=== PATIENT | male | born 1940 | race African-American/Black ===

== ENCOUNTER 2017-11-07 14:25 | Inpatient (IN) | payer OTHER, MEDICARE ==
[~2017-11-07] VITALS: Ht 182.9 cm; Wt 86.2 kg
[2017-11-07] MEDS ORDERED: SODIUM CHLORIDE 0.9% 1,000 ML IV ONE (14:41)
[2017-11-07 15:17] LABS: BASOPHILS % 0.8 % (0.0-2.0); EOSINOPHILS % 5.5 % (0.0-5.0); HEMATOCRIT. 36.4 % (42.0-52.0); HEMOGLOBIN. 11.9 g/dL (14.0-18.0); LYMPHOCYTES % 27.6 % (20.0-50.0); MEAN CORPUSCULAR HEMOGLOBIN 28.4 pg (28.0-32.0); MEAN CORPUSCULAR VOLUME 86.6 fL (80.0-94.0); MEAN PLATELET VOLUME 8.9 fl (7.4-10.4); MONOCYTES % 7.7 % (2.0-8.0); NEUTROPHILS % 58.4 % (40.0-76.0); PLATELET 177 x1000/uL (130-400); RED CELL DISTRIBUTION WIDTH 13.1 % (11.6-14.6)
[2017-11-07 15:22] LABS: INR 1.1; PROTHROMBIN TIME 11.6 sec (9.4-11.6)
[2017-11-07 15:24] LABS: CHLORIDE 103 mEq/L (98-107)
[2017-11-07 15:31] LABS: TROPONIN I < 0.02 ng/mL (0.00-0.04)
[2017-11-07 18:44] LABS: CLARITY URINE CLEAR (CLEAR); COLOR URINE YELLOW (YELLOW); KETONES URINE NEGATIVE (NEGATIVE); LEUKOCYTE ESTERASE URINE 1+ (NEGATIVE); NITRITE URINE NEGATIVE (NEGATIVE); OCCULT BLOOD URINE NEGATIVE (NEGATIVE); PROTEIN URINE NEGATIVE (NEGATIVE); SPECIFIC GRAVITY URINE 1.018 (1.005-1.030); UROBILINOGEN URINE 0.2 E.U./dL (0.2-1.0)
[2017-11-07] MEDS ORDERED: ACETAMINOPHEN 325MG TABLET PO PRN (23:45)
[2017-11-07] MEDS ORDERED: ONDANSETRON HCL 4MG/2ML VIAL IV PRN (23:45)
[2017-11-07] MEDS ORDERED: DIPHENHYDRAMINE 50MG/ML VIAL IV PRN (23:45)
[2017-11-07] MEDS ORDERED: MAGNESIUM/ALUMINUM HYDROXIDE/SIMETHICONE 30ML UDC PO PRN (23:45)
[2017-11-07] MEDS ORDERED: DOCUSATE SODIUM 100MG CAPSULE PO PRN (23:45)
[2017-11-07] MEDS ORDERED: CLONIDINE 0.1MG TABLET PO PRN (23:45)
[2017-11-07 23:53] VITALS: BP 135/73
[2017-11-08] VITALS: BP 135/73
[2017-11-08] MEDS ORDERED: DEXT 5%/0.45% NACL 1000ML 1,000 ML IV SCH (01:00)
[2017-11-08] MEDS ORDERED: METO25TA6 PO (01:06)
[2017-11-08] MEDS ORDERED: SIMV40TA2 PO (01:06)
[2017-11-08] MEDS ORDERED: ASPI-1159 PO (01:06)
[2017-11-08] MEDS ORDERED: MULT-1146 PO (01:06)
[2017-11-08] MEDS ORDERED: MEMA10TA2 PO (01:06)
[2017-11-08] MEDS ORDERED: TERA2CAP4 PO (01:06)
[2017-11-08 04:00] VITALS: BP 131/63
[2017-11-08 07:42] LABS: BASOPHILS % 0.4 % (0.0-2.0); EOSINOPHILS % 3.6 % (0.0-5.0); HEMATOCRIT. 33.1 % (42.0-52.0); HEMOGLOBIN. 11.2 g/dL (14.0-18.0); LYMPHOCYTES % 32.4 % (20.0-50.0); MEAN CORPUSCULAR HEMOGLOBIN 28.7 pg (28.0-32.0); MEAN PLATELET VOLUME 8.9 fl (7.4-10.4); MONOCYTES % 9.4 % (2.0-8.0); NEUTROPHILS % 54.2 % (40.0-76.0); PLATELET 190 x1000/uL (130-400); RED BLOOD CELL COUNT 3.89 mill/uL (4.7-6.1); RED CELL DISTRIBUTION WIDTH 13.2 % (11.6-14.6)
[2017-11-08 07:56] LABS: CHLORIDE 106 mEq/L (98-107)
[2017-11-08 08:05] VITALS: BP 110/67
[2017-11-08 08:09] LABS: TROPONIN I < 0.02 ng/mL (0.00-0.04)
[2017-11-08] MEDS ORDERED: METOPROLOL TARTRATE 25MG TABLET PO SCH (09:00)
[2017-11-08] MEDS: ASPIRIN 81MG EC TABLET PO SCH (09:30)
[2017-11-08] MEDS: MEMANTINE HCL 10MG TABLET PO SCH ×2 (09:31→18:24)
[2017-11-08 12:04] VITALS: BP 104/56
[2017-11-08 16:53] VITALS: BP 102/74
[2017-11-08 20:00] VITALS: BP_SYST 110; BP_SYST 126; BP_DIAS 65
[2017-11-09] VITALS: BP 111/67
[2017-11-09 04:00] VITALS: BP 110/78
[2017-11-09] MEDS: MEMANTINE HCL 10MG TABLET PO SCH (08:24)
[2017-11-09] MEDS: ASPIRIN 81MG EC TABLET PO SCH (08:24)
[2017-11-09 09:31] VITALS: BP 120/66
[2017-11-09 12:47] VITALS: BP 115/48
[2017-11-09 13:20] VITALS: BP 111/62
== END 2017-11-09 15:40 | disposition home or self-care (01) | DRG 73 ==
LOC: ER 14:35 → 6WST 19:32 → EDBEDREQ 19:36 → ENRESERV 23:08
PROVIDERS: ADMIT Internal Medicine; ATTEND Internal Medicine
DX: G90.8 Other disorders of autonomic nervous system (principal); G93.41 Metabolic encephalopathy; F01.51 Vascular dementia, unspecified severity, with behavioral disturbance; I48.91 Unspecified atrial fibrillation; I95.9 Hypotension, unspecified; I25.10 Atherosclerotic heart disease of native coronary artery without angina pectoris; I10 Essential (primary) hypertension; I44.0 Atrioventricular block, first degree; M19.90 Unspecified osteoarthritis, unspecified site; Z82.49 Family history of ischemic heart disease and other diseases of the circulatory system; Z95.5 Presence of coronary angioplasty implant and graft; Z79.899 Other long term (current) drug therapy; Z79.82 Long term (current) use of aspirin; Z74.01 Bed confinement status
CPT/HCPCS: 36415; 70450; 70551; 71045; 80048; 80053; 81003; 83880; 84443; 84484; 85025; 85610; 93005; 93306; 93880; 96360; 96361; 97163; 99285; J3490; J7030

== ENCOUNTER 2017-11-25 13:40 | Inpatient (IN) | payer MEDICARE, OTHER ==
[~2017-11-25] VITALS: Ht 182.9 cm; Wt 87.1 kg
[~2017-11-25 13:40] MED LIST: ASPI-1159 PO; MEMA10TA2 PO; METO25TA6 PO; MULT-1146 PO; SIMV40TA2 PO; TERA2CAP4 PO
[2017-11-25] MEDS ORDERED: SODIUM CHLORIDE 0.9% 1,000 ML IV ONE (15:20)
[2017-11-25 15:49] LABS: CHLORIDE 104 mEq/L (98-107)
[2017-11-25 15:54] LABS: BASOPHILS % 0.6 % (0.0-2.0); EOSINOPHILS % 1.9 % (0.0-5.0); LYMPHOCYTES % 13.4 % (20.0-50.0); MEAN CORPUSCULAR HEMOGLOBIN 28.6 pg (28.0-32.0); MEAN CORPUSCULAR VOLUME 85.8 fL (80.0-94.0); MEAN PLATELET VOLUME 8.9 fl (7.4-10.4); MONOCYTES % 7.1 % (2.0-8.0); PLATELET 190 x1000/uL (130-400); RED BLOOD CELL COUNT 4.19 mill/uL (4.7-6.1); RED CELL DISTRIBUTION WIDTH 13.7 % (11.6-14.6)
[2017-11-25 15:57] LABS: INR 1.1; PROTHROMBIN TIME 11.5 sec (9.4-11.6)
[2017-11-25 16:59] LABS: CLARITY URINE CLEAR (CLEAR); COLOR URINE YELLOW (YELLOW); KETONES URINE NEGATIVE (NEGATIVE); LEUKOCYTE ESTERASE URINE NEGATIVE (NEGATIVE); NITRITE URINE NEGATIVE (NEGATIVE); OCCULT BLOOD URINE NEGATIVE (NEGATIVE); PH URINE 6.5 (4.5-8.0); PROTEIN URINE NEGATIVE (NEGATIVE); SPECIFIC GRAVITY URINE 1.016 (1.005-1.030)
[2017-11-25] MEDS ORDERED: IPRATROPIUM/ALBUTEROL 0.5-3(2.5)MG/3ML NEB INH PRN (18:15)
[2017-11-25] MEDS ORDERED: ACETAMINOPHEN 325MG TABLET PO PRN (18:15)
[2017-11-25] MEDS ORDERED: NA PHOS,M-B/NA PHOS,DI-BA ENEMA 118ML PR PRN (18:15)
[2017-11-25] MEDS ORDERED: DOCUSATE SODIUM 100MG CAPSULE PO PRN (18:15)
[2017-11-25] MEDS ORDERED: GUAIFENESIN 200MG/10ML SUGAR FREE UDC PO PRN (18:15)
[2017-11-25] MEDS ORDERED: LORAZEPAM 0.5MG TABLET PO PRN (18:15)
[2017-11-25] MEDS ORDERED: ONDANSETRON HCL 4MG/2ML VIAL IV PRN (18:15)
[2017-11-25] MEDS ORDERED: MAGNESIUM/ALUMINUM HYDROXIDE/SIMETHICONE 30ML UDC PO PRN (18:15)
[2017-11-25] MEDS ORDERED: DIPHENHYDRAMINE 50MG/ML VIAL IV PRN (18:15)
[2017-11-25] MEDS ORDERED: CLONIDINE 0.1MG TABLET PO PRN (18:15)
[2017-11-25 18:46] LABS: T4 FREE 1.01 ng/dL (0.76-1.46)
[2017-11-25] MEDS ORDERED: LEVOFLOXACIN 500MG PREMIX 100 ML IV NR (20:49)
[2017-11-25] MEDS: SODIUM CHLORIDE 0.9% 1,000 ML IV SCH (21:30)
[2017-11-25 22:20] LABS: CREATINE KINASE 103 IU/L (39-308)
[2017-11-25 22:21] LABS: CREATINE KINASE MB FRACTION 1.9 ng/mL (0.5-3.6); TROPONIN I <0.01 ng/mL ng/mL (0.00-0.04)
[2017-11-25 23:21] VITALS: BP 128/66
[2017-11-26] VITALS: BP 128/66
[2017-11-26] MEDS ORDERED: CEFTRIAXONE 1 G PREMIX 50 ML IV SCH (02:00)
[2017-11-26] MEDS ORDERED: LEVOFLOXACIN 500MG PREMIX 100 ML IV SCH ×2 (03:00→06:00)
[2017-11-26 04:00] VITALS: BP 130/68
[2017-11-26 06:37] LABS: CREATINE KINASE 95 IU/L (39-308); CREATINE KINASE MB FRACTION 1.7 ng/mL (0.5-3.6); TROPONIN I <0.01 ng/mL ng/mL (0.00-0.04)
[2017-11-26 08:00] VITALS: BP 110/60
[2017-11-26] MEDS ORDERED: ENOXAPARIN 40MG/0.4ML SYR SUBCUT SCH (09:00)
[2017-11-26 11:34] LABS: *AMPHETAMINES SCREEN URINE NEGATIVE (NEGATIVE); *BARBITURATES SCREEN URINE NEGATIVE (NEGATIVE); *BENZODIAZEPINES SCREEN URINE NEGATIVE (NEGATIVE); *COCAINE SCREEN URINE NEGATIVE (NEGATIVE); METHADONE URINE SCREEN NEGATIVE (NEGATIVE)
[2017-11-26 11:35] LABS: CANNABINOID URINE SCREEN NEGATIVE (NEGATIVE); OPIATES URINE SCREEN NEGATIVE (NEGATIVE); PHENCYCLIDINE URINE SCREEN NEGATIVE (NEGATIVE)
[2017-11-26 12:00] VITALS: BP 129/68
[2017-11-26] MEDS: SODIUM CHLORIDE 0.9% 1,000 ML IV SCH (15:00)
[2017-11-26 16:21] VITALS: BP 132/75
[2017-11-27 17:58] LABS: FOLIC ACID (FOLATE) SERUM 17.9 ng/mL (>5.38)
== END 2017-11-26 18:10 | disposition short-term general hospital (02) | DRG 871 ==
LOC: ER 14:21 → 8WST 17:37 → EDBEDREQ 17:41 → EDBEDREQSVC 17:41 → ENRESERV 21:17
PROVIDERS: ADMIT Internal Medicine; ATTEND Internal Medicine
DX: A41.9 Sepsis, unspecified organism (principal); G92 Toxic encephalopathy; F03.90 Unspecified dementia, unspecified severity, without behavioral disturbance, psychotic disturbance, mood disturbance, and anxiety; I10 Essential (primary) hypertension; Z79.899 Other long term (current) drug therapy
CPT/HCPCS: 36415; 70450; 71045; 80053; 80061; 80305; 81003; 82550; 82553; 82607; 82746; 82962; 83036; 83540; 83550; 83605; 84439; 84443; 84484; 85025; 85610; 87040; 87086; 93005; 93970; 99285; J0696; J1650; J1956; J7030; J7620

== ENCOUNTER 2018-01-11 14:45 | Emergency (ER) | payer MEDICARE, OTHER ==
[~2018-01-11] VITALS: Ht 182.9 cm; Wt 85.0 kg
[2018-01-11] MEDS ORDERED: KETOROLAC 15MG/ML VIAL IV ONE (15:15)
[2018-01-11] MEDS ORDERED: SODIUM CHLORIDE 0.9% 1000ML BAG (SEPSIS BOLUS) IV ONE (15:15)
[2018-01-11] MEDS ORDERED: LEVETIRACETAM 500MG PREMIX 100 ML IV ONE (15:15)
[2018-01-11 17:53] LABS: CHLORIDE 104 mEq/L (98-107)
[2018-01-11 17:54] LABS: BASOPHILS % 0.2 % (0.0-2.0); EOSINOPHILS % 1.4 % (0.0-5.0); HEMATOCRIT. 37.9 % (42.0-52.0); HEMOGLOBIN. 12.5 g/dL (14.0-18.0); LYMPHOCYTES % 14.1 % (20.0-50.0); MEAN CORPUSCULAR HEMOGLOBIN 29.1 pg (28.0-32.0); MEAN CORPUSCULAR VOLUME 87.9 fL (80.0-94.0); MEAN PLATELET VOLUME 8.6 fl (7.4-10.4); MONOCYTES % 4.6 % (2.0-8.0); NEUTROPHILS % 79.7 % (40.0-76.0); PLATELET 203 x1000/uL (130-400); RED BLOOD CELL COUNT 4.31 mill/uL (4.7-6.1); RED CELL DISTRIBUTION WIDTH 14.3 % (11.6-14.6)
[2018-01-11 17:59] LABS: PARTIAL THROMBOPLASTIN TIME 22.3 sec (23.4-31.0); PROTHROMBIN TIME 10.9 sec (9.4-11.6)
[2018-01-11] MEDS ORDERED: LEVOFLOXACIN 750MG PREMIX 150 ML IV ONE (18:30)
[2018-01-11] MEDS ORDERED: ASPIRIN 325MG EC TABLET PO ONE (19:00)
[2018-01-11 21:10] LABS: CLARITY URINE CLEAR (CLEAR); COLOR URINE YELLOW (YELLOW); KETONES URINE NEGATIVE (NEGATIVE); LEUKOCYTE ESTERASE URINE TRACE (NEGATIVE); NITRITE URINE NEGATIVE (NEGATIVE); OCCULT BLOOD URINE 2+ (NEGATIVE); PROTEIN URINE NEGATIVE (NEGATIVE); SPECIFIC GRAVITY URINE 1.012 (1.005-1.030); UROBILINOGEN URINE 0.2 E.U./dL (0.2-1.0)
[2018-01-12 00:48] VITALS: BP 140/80
== END 2018-01-12 00:49 | disposition short-term general hospital (02) ==
LOC: ER 15:00
DX: A41.9 Sepsis, unspecified organism (principal); R65.20 Severe sepsis without septic shock; R55 Syncope and collapse; I95.9 Hypotension, unspecified; G40.909 Epilepsy, unspecified, not intractable, without status epilepticus; I25.10 Atherosclerotic heart disease of native coronary artery without angina pectoris; D64.9 Anemia, unspecified; F03.90 Unspecified dementia, unspecified severity, without behavioral disturbance, psychotic disturbance, mood disturbance, and anxiety; I11.9 Hypertensive heart disease without heart failure; Z79.82 Long term (current) use of aspirin
CPT/HCPCS: 36415; 70450; 71045; 72125; 73521; 73560; 80053; 81003; 83605; 83880; 84484; 85025; 85610; 85730; 86850; 86900; 86901; 87040; 87086; 93005; 96365; 96375; 99291; J1885; J1953; J1956; J7030; Z7610

== ENCOUNTER 2018-07-30 16:50 | Emergency (ER) | payer OTHER ==
[~2018-07-30] VITALS: Ht 180.3 cm; Wt 78.0 kg
[2018-07-30 17:58] LABS: BASOPHILS % 0.6 % (0.0-2.0); EOSINOPHILS % 1.3 % (0.0-5.0); HEMATOCRIT. 41.7 % (42.0-52.0); LYMPHOCYTES % 10.6 % (20.0-50.0); MEAN CORPUSCULAR HEMOGLOBIN 28.8 pg (28.0-32.0); MEAN CORPUSCULAR VOLUME 86.1 fL (80.0-94.0); MEAN PLATELET VOLUME 8.5 fl (7.4-10.4); MONOCYTES % 6.1 % (2.0-8.0); NEUTROPHILS % 81.4 % (40.0-76.0); PLATELET 204 x1000/uL (130-400); RED BLOOD CELL COUNT 4.84 mill/uL (4.7-6.1); RED CELL DISTRIBUTION WIDTH 14.1 % (11.6-14.6)
[2018-07-30 18:04] LABS: CHLORIDE 102 mEq/L (98-107); INR 1.1; PROTHROMBIN TIME 10.7 sec (9.1-11.1)
[2018-07-30 18:13] LABS: CREATINE KINASE 165 IU/L (39-308); ETHANOL BLOOD < 10 mg/dL; LDL CHOLESTEROL 76 mg/dL (5-100)
[2018-07-30] MEDS ORDERED: LEVETIRACETAM 1000MG/100ML 100 ML IV ONE (18:15)
[2018-07-30 19:25] LABS: CLARITY URINE CLEAR (CLEAR); COLOR URINE YELLOW (YELLOW); KETONES URINE NEGATIVE (NEGATIVE); LEUKOCYTE ESTERASE URINE 2+ (NEGATIVE); NITRITE URINE NEGATIVE (NEGATIVE); OCCULT BLOOD URINE NEGATIVE (NEGATIVE); PROTEIN URINE NEGATIVE (NEGATIVE); SPECIFIC GRAVITY URINE 1.016 (1.005-1.030); UROBILINOGEN URINE 0.2 E.U./dL (0.2-1.0)
[2018-07-30 19:43] LABS: *AMPHETAMINES SCREEN URINE NEGATIVE (NEGATIVE); *BARBITURATES SCREEN URINE NEGATIVE (NEGATIVE); *BENZODIAZEPINES SCREEN URINE NEGATIVE (NEGATIVE); *COCAINE SCREEN URINE NEGATIVE (NEGATIVE); CANNABINOID URINE SCREEN NEGATIVE (NEGATIVE); METHADONE URINE SCREEN NEGATIVE (NEGATIVE); OPIATES URINE SCREEN NEGATIVE (NEGATIVE); PHENCYCLIDINE URINE SCREEN NEGATIVE (NEGATIVE)
[2018-07-30] MEDS ORDERED: CEFTRIAXONE 1 G PREMIX 50 ML IV ONE (20:45)
[2018-07-30 21:38] VITALS: BP 114/64
== END 2018-07-30 22:34 | disposition short-term general hospital (02) ==
LOC: ER 16:50
DX: G40.909 Epilepsy, unspecified, not intractable, without status epilepticus (principal); G93.49 Other encephalopathy; N39.0 Urinary tract infection, site not specified; F03.90 Unspecified dementia, unspecified severity, without behavioral disturbance, psychotic disturbance, mood disturbance, and anxiety; I25.10 Atherosclerotic heart disease of native coronary artery without angina pectoris; E11.9 Type 2 diabetes mellitus without complications; I10 Essential (primary) hypertension; D72.829 Elevated white blood cell count, unspecified; I45.10 Unspecified right bundle-branch block; Z95.5 Presence of coronary angioplasty implant and graft; Z88.8 Allergy status to other drugs, medicaments and biological substances; Z86.73 Personal history of transient ischemic attack (TIA), and cerebral infarction without residual deficits
CPT/HCPCS: 36415; 70450; 71045; 80053; 80305; 81003; 82550; 83605; 83690; 83721; 83880; 84484; 85025; 85610; 87086; 93005; 96365; 99291; G0482; J1953

== ENCOUNTER 2019-10-20 06:28 | Emergency (ER) | payer OTHER ==
[~2019-10-20] VITALS: Ht 182.9 cm; Wt 91.0 kg
[~2019-10-20 06:28] MED LIST changes: -ASPI-1159 PO; +ASPI-1497 PO
[2019-10-20 08:16] LABS: BASOPHILS % 0.9 % (0.0-2.0); EOSINOPHILS % 3.2 % (0.0-5.0); HEMATOCRIT. 40.8 % (42.0-52.0); HEMOGLOBIN. 13.7 g/dL (14.0-18.0); LYMPHOCYTES % 19.4 % (20.0-50.0); MEAN CORPUSCULAR HEMOGLOBIN 29.3 pg (28.0-32.0); MEAN CORPUSCULAR VOLUME 87.2 fL (80.0-94.0); MEAN PLATELET VOLUME 8.5 fl (7.4-10.4); MONOCYTES % 9.6 % (2.0-8.0); NEUTROPHILS % 66.9 % (40.0-76.0); PLATELET 150 x1000/uL (130-400); RED BLOOD CELL COUNT 4.68 mill/uL (4.7-6.1); RED CELL DISTRIBUTION WIDTH 13.3 % (11.6-14.6)
[2019-10-20 08:22] LABS: CHLORIDE 106 mEq/L (98-107)
[2019-10-20 09:06] LABS: CLARITY URINE CLEAR (CLEAR); COLOR URINE YELLOW (YELLOW); KETONES URINE NEGATIVE (NEGATIVE); LEUKOCYTE ESTERASE URINE NEGATIVE (NEGATIVE); NITRITE URINE NEGATIVE (NEGATIVE); OCCULT BLOOD URINE TRACE (NEGATIVE); PH URINE 5.5 (4.5-8.0); PROTEIN URINE NEGATIVE (NEGATIVE); SPECIFIC GRAVITY URINE 1.012 (1.005-1.030); UROBILINOGEN URINE 0.2 E.U./dL (0.2-1.0)
[2019-10-20 11:47] VITALS: BP 126/90
== END 2019-10-20 12:50 | disposition short-term general hospital (02) ==
LOC: ER 06:28
DX: R41.82 Altered mental status, unspecified (principal); E11.9 Type 2 diabetes mellitus without complications; I11.9 Hypertensive heart disease without heart failure; I25.2 Old myocardial infarction; F03.90 Unspecified dementia, unspecified severity, without behavioral disturbance, psychotic disturbance, mood disturbance, and anxiety; R53.83 Other fatigue; R06.02 Shortness of breath; R05 Cough; Z79.899 Other long term (current) drug therapy; Z98.890 Other specified postprocedural states; Z79.82 Long term (current) use of aspirin
CPT/HCPCS: 36415; 71045; 80053; 81003; 82962; 83880; 84484; 85025; 87804; 93005; 99285

== ENCOUNTER 2020-10-02 03:58 | Inpatient (IN) | payer MEDICARE, OTHER ==
[~2020-10-02] VITALS: Ht 175.3 cm; Wt 79.6 kg
[2020-10-02] MEDS ORDERED: ACETAMINOPHEN 650MG SUPP PR STA (04:18)
[2020-10-02] MEDS ORDERED: SODIUM CHLORIDE 0.9% 1,000 ML IV ONE (04:45)
[2020-10-02 05:52] LABS: CLARITY URINE CLEAR (CLEAR); COLOR URINE YELLOW (YELLOW); KETONES URINE TRACE (NEGATIVE); LEUKOCYTE ESTERASE URINE TRACE (NEGATIVE); NITRITE URINE NEGATIVE (NEGATIVE); OCCULT BLOOD URINE 1+ (NEGATIVE); PROTEIN URINE 1+ (NEGATIVE); SPECIFIC GRAVITY URINE 1.034 (1.005-1.030); UROBILINOGEN URINE 0.2 E.U./dL (0.2-1.0)
[2020-10-02] MEDS ORDERED: AZITHROMYCIN 500 MG in DEXT 5% WATER 250 ML IV SCH (09:00)
[2020-10-02] MEDS ORDERED: VANCOMYCIN 1 G PREMIX 200 ML IV SCH (09:00)
[2020-10-02] MEDS ORDERED: PIPERACILLIN/TAZOBACTAM 3.375GM/50ML PREMIX IV ONE (09:00)
[2020-10-02] MEDS ORDERED: PIPERACILLIN/TAZOBACTAM 3.375 G in DEXT 5% WATER 100 ML IV NR (09:00)
[2020-10-02 10:15] LABS: BASOPHILS % 0.8 % (0.0-2.0); EOSINOPHILS % 1.4 % (0.0-5.0); HEMATOCRIT. 48.6 % (42.0-52.0); HEMOGLOBIN. 15.5 g/dL (14.0-18.0); LYMPHOCYTES % 23.6 % (20.0-50.0); MEAN CORPUSCULAR VOLUME 88.1 fL (80.0-94.0); MEAN PLATELET VOLUME 9.9 fl (7.4-10.4); MONOCYTES % 8.3 % (2.0-8.0); NEUTROPHILS % 65.9 % (40.0-76.0); PLATELET 185 x1000/uL (130-400); RED BLOOD CELL COUNT 5.52 mill/uL (4.7-6.1); RED CELL DISTRIBUTION WIDTH 14.3 % (11.6-14.6)
[2020-10-02 10:24] LABS: CHLORIDE 123 mEq/L (98-107)
[2020-10-02] MEDS ORDERED: ACETAMINOPHEN 325MG TABLET PO PRN (11:15)
[2020-10-02] MEDS ORDERED: CLONIDINE 0.1MG TABLET PO PRN (11:15)
[2020-10-02] MEDS ORDERED: HYDROCODONE/ACETAMINOPHEN 5/325MG TABLET PO PRN (11:15)
[2020-10-02] MEDS ORDERED: DOCUSATE SODIUM 100MG CAPSULE PO PRN (11:15)
[2020-10-02] MEDS ORDERED: MAGNESIUM/ALUMINUM HYDROXIDE/SIMETHICONE 30ML UDC PO PRN (11:15)
[2020-10-02] MEDS ORDERED: CEFTRIAXONE 1 G PREMIX 50 ML IV SCH (11:15)
[2020-10-02] MEDS ORDERED: GUAIFENESIN 200MG/10ML SUGAR FREE UDC PO PRN (11:15)
[2020-10-02] MEDS ORDERED: ALBUTEROL 6.7GM HFA INHALER ORI PRN (11:15)
[2020-10-02] MEDS: ENOXAPARIN 40MG/0.4ML SYR SUBCUT SCH (12:15)
[2020-10-02] MEDS ORDERED: CEFTRIAXONE 1,000 MG in DEXTROSE 5% WATER 50 ML IV SCH (13:00)
[2020-10-02 18:45] LABS: C REACTIVE PROTEIN QUANT 7.7 mg/L (0.0-3.0)
[2020-10-03 04:39] LABS: BASOPHILS % 0.8 % (0.0-2.0); EOSINOPHILS % 1.1 % (0.0-5.0); HEMOGLOBIN. 15.6 g/dL (14.0-18.0); LYMPHOCYTES % 22.6 % (20.0-50.0); MEAN CORPUSCULAR HEMOGLOBIN 28.4 pg (28.0-32.0); MEAN CORPUSCULAR VOLUME 87.3 fL (80.0-94.0); MEAN PLATELET VOLUME 9.6 fl (7.4-10.4); MONOCYTES % 8.4 % (2.0-8.0); NEUTROPHILS % 67.1 % (40.0-76.0); PLATELET 151 x1000/uL (130-400); RED BLOOD CELL COUNT 5.49 mill/uL (4.7-6.1); RED CELL DISTRIBUTION WIDTH 14.4 % (11.6-14.6)
[2020-10-03 04:51] LABS: CHLORIDE 120 mEq/L (98-107)
[2020-10-03] MEDS ORDERED: AZITHROMYCIN 500 MG in DEXT 5% WATER 250 ML IV SCH (09:00)
[2020-10-03] MEDS: PANTOPRAZOLE SODIUM 40 MG/VIAL IV SCH (09:00)
[2020-10-03] MEDS: DEXAMETHASONE 4MG TABLET PO SCH (09:00)
[2020-10-03 12:00] VITALS: BP 124/55
[2020-10-03] MEDS: ENOXAPARIN 40MG/0.4ML SYR SUBCUT SCH (12:00)
[2020-10-03 12:44] VITALS: BP 126/55
[2020-10-03] MEDS ORDERED: CEFTRIAXONE 1,000 MG in DEXTROSE 5% WATER 50 ML IV SCH (13:00)
[2020-10-03] MEDS: AZITHROMYCIN 500 MG in DEXT 5% WATER 250 ML IV SCH (16:00)
[2020-10-03 20:00] VITALS: BP 118/69
[2020-10-04] VITALS: BP 106/59
[2020-10-04 04:00] VITALS: BP 113/70
[2020-10-04 08:00] VITALS: BP 118/71
[2020-10-04] MEDS: DEXAMETHASONE 4MG TABLET PO SCH (09:38)
[2020-10-04] MEDS: PANTOPRAZOLE SODIUM 40 MG/VIAL IV SCH (09:38)
[2020-10-04 12:00] VITALS: BP 124/70
[2020-10-04] MEDS: ENOXAPARIN 40MG/0.4ML SYR SUBCUT SCH (12:38)
[2020-10-04] MEDS: AZITHROMYCIN 500 MG in DEXT 5% WATER 250 ML IV SCH (12:38)
[2020-10-04 16:00] VITALS: BP 133/98
[2020-10-04 20:00] VITALS: BP 127/71
[2020-10-05] VITALS: BP 129/78
[2020-10-05 04:00] VITALS: BP 156/85
[2020-10-05 08:00] VITALS: BP 135/83
[2020-10-05] MEDS: DEXAMETHASONE 4MG TABLET PO SCH (08:31)
[2020-10-05] MEDS: AZITHROMYCIN 500 MG TABLET PO SCH (08:31)
[2020-10-05] MEDS: FAMOTIDINE 20MG TABLET PO SCH ×2 (08:32→20:35)
[2020-10-05 12:00] VITALS: BP 132/85
[2020-10-05] MEDS ORDERED: LIDOCAINE HCL 1% 20ML VIAL (Pyxis) INJ ONE (12:58)
[2020-10-05] MEDS ORDERED: SODIUM BICARBONATE 4% (2.4MEQ) 5ML VIAL IV ONE (12:58)
[2020-10-05] MEDS: ENOXAPARIN 40MG/0.4ML SYR SUBCUT SCH (14:24)
[2020-10-05] MEDS: DEXTROSE 5% WATER 1,000 ML IV SCH (14:24)
[2020-10-05 16:00] VITALS: BP 147/95
[2020-10-05 20:00] VITALS: BP 135/93
[2020-10-06] VITALS (8 sets, daily range): BP systolic 60–149; BP diastolic 40–84
[2020-10-06] MEDS: DEXTROSE 5% WATER 1,000 ML IV SCH (08:33)
[2020-10-06] MEDS: DEXAMETHASONE 4MG TABLET PO SCH (08:33)
[2020-10-06] MEDS: FAMOTIDINE 20MG TABLET PO SCH ×2 (08:33→21:27)
[2020-10-06] MEDS: AZITHROMYCIN 500 MG TABLET PO SCH (08:34)
[2020-10-06] MEDS: ENOXAPARIN 40MG/0.4ML SYR SUBCUT SCH (11:40)
[2020-10-06] MEDS ORDERED: SODIUM CHLORIDE 0.9% 500 ML IV NR (12:15)
[2020-10-06] MEDS: MIDODRINE HCL 5MG TABLET PO SCH ×2 (12:17→16:06)
[2020-10-06 21:11] LABS: BASOPHILS % 0.7 % (0.0-2.0); EOSINOPHILS % 0.8 % (0.0-5.0); HEMATOCRIT. 40.7 % (42.0-52.0); HEMOGLOBIN. 13.2 g/dL (14.0-18.0); MEAN CORPUSCULAR HEMOGLOBIN 28.1 pg (28.0-32.0); MEAN CORPUSCULAR VOLUME 86.9 fL (80.0-94.0); MEAN PLATELET VOLUME 10.5 fl (7.4-10.4); MONOCYTES % 2.8 % (2.0-8.0); NEUTROPHILS % 84.7 % (40.0-76.0); PLATELET 148 x1000/uL (130-400); RED BLOOD CELL COUNT 4.69 mill/uL (4.7-6.1); RED CELL DISTRIBUTION WIDTH 13.6 % (11.6-14.6)
[2020-10-06 21:17] LABS: CHLORIDE 119 mEq/L (98-107)
[2020-10-07] VITALS: BP 126/66
[2020-10-07 04:00] VITALS: BP_SYST 135; BP_SYST 154; BP_DIAS 59
[2020-10-07] MEDS: DEXTROSE 5% WATER 1,000 ML IV SCH (04:50)
[2020-10-07 08:00] VITALS: BP 142/70
[2020-10-07] MEDS: DEXAMETHASONE 4MG TABLET PO SCH (08:18)
[2020-10-07] MEDS: FAMOTIDINE 20MG TABLET PO SCH ×2 (08:19→20:57)
[2020-10-07] MEDS: MIDODRINE HCL 5MG TABLET PO SCH ×3 (08:19→17:00)
[2020-10-07 10:18] LABS: BG BASE EXCESS 1.6 mmol/L (-2.0-2.0); BG CARBOXYHEMOGLOBIN 0.3 % (0.5-1.5); BG DEOXYHEMOGLOBIN 1.3 % (0.0-5.0); BG FRACTION INSPIRED OXYGEN 100; BG HCO3 ACT 25.5 mmol/L (22.0-26.0); BG METHEMOGLOBIN 0.2 % (0.0-1.5); BG OXYGEN SATURATION 98.7 % (92.0-98.5); BG OXYHEMOGLOBIN 98.2 % (94.0-97.0); BG PCO2 37.7 mmHg (35.0-45.0); BG PH 7.448 (7.350-7.450); BG SAMPLE SITE RIGHT RADIAL; BG TOTAL HEMOGLOBIN 13.6 g/dL (12.0-18.0); BG VENT MODE MASK - NRB
[2020-10-07 12:00] VITALS: BP 150/68
[2020-10-07] MEDS: ENOXAPARIN 40MG/0.4ML SYR SUBCUT SCH (12:00)
[2020-10-07 16:00] VITALS: BP 156/72
[2020-10-07 20:00] VITALS: BP 156/74
[2020-10-08] VITALS: BP 153/66
[2020-10-08] MEDS: DEXTROSE 5% WATER 1,000 ML IV SCH ×2 (02:34→21:53)
[2020-10-08 04:00] VITALS: BP 114/72
[2020-10-08 08:00] VITALS: BP 95/68
[2020-10-08] MEDS: FAMOTIDINE 20MG TABLET PO SCH ×2 (09:29→20:38)
[2020-10-08] MEDS: MIDODRINE HCL 5MG TABLET PO SCH ×3 (09:31→17:00)
[2020-10-08] MEDS: DEXAMETHASONE 4MG TABLET PO SCH (09:32)
[2020-10-08 12:00] VITALS: BP 137/80
[2020-10-08] MEDS: ENOXAPARIN 40MG/0.4ML SYR SUBCUT SCH (12:07)
[2020-10-08 16:00] VITALS: BP 137/77
[2020-10-08 20:00] VITALS: BP 147/58
[2020-10-09] VITALS: BP 150/71
[2020-10-09 04:00] VITALS: BP 152/72
[2020-10-09 08:00] VITALS: BP 161/83
[2020-10-09] MEDS: MIDODRINE HCL 5MG TABLET PO SCH ×2 (08:51→12:11)
[2020-10-09] MEDS: DEXAMETHASONE 4MG TABLET PO SCH (08:51)
[2020-10-09] MEDS: FAMOTIDINE 20MG TABLET PO SCH ×2 (09:44→21:16)
[2020-10-09] MEDS: ENOXAPARIN 40MG/0.4ML SYR SUBCUT SCH (11:56)
[2020-10-09 12:00] VITALS: BP 156/78
[2020-10-09] MEDS: DEXTROSE 5% WATER 1,000 ML IV SCH (15:35)
[2020-10-09 16:00] VITALS: BP 139/66
[2020-10-09 20:00] VITALS: BP 143/70
[2020-10-10] VITALS: BP 134/62
[2020-10-10 04:00] VITALS: BP 119/65
[2020-10-10 08:00] VITALS: BP 164/77
[2020-10-10] MEDS: DEXAMETHASONE 4MG TABLET PO SCH (10:10)
[2020-10-10] MEDS: FAMOTIDINE 20MG TABLET PO SCH ×2 (10:11→21:17)
[2020-10-10 12:00] VITALS: BP 136/67
[2020-10-10] MEDS: ENOXAPARIN 40MG/0.4ML SYR SUBCUT SCH (12:21)
[2020-10-10] MEDS: DEXTROSE 5% WATER 1,000 ML IV SCH (12:22)
[2020-10-10 16:00] VITALS: BP 131/69
[2020-10-10 20:00] VITALS: BP 135/80
[2020-10-10 20:20] LABS: BASOPHILS % 0.3 % (0.0-2.0); EOSINOPHILS % 0.3 % (0.0-5.0); HEMOGLOBIN. 13.5 g/dL (14.0-18.0); LYMPHOCYTES % 12.1 % (20.0-50.0); MEAN CORPUSCULAR HEMOGLOBIN 28.5 pg (28.0-32.0); MEAN PLATELET VOLUME 10.7 fl (7.4-10.4); MONOCYTES % 4.9 % (2.0-8.0); NEUTROPHILS % 82.4 % (40.0-76.0); PLATELET 143 x1000/uL (130-400); RED BLOOD CELL COUNT 4.76 mill/uL (4.7-6.1); RED CELL DISTRIBUTION WIDTH 13.1 % (11.6-14.6)
[2020-10-10 20:28] LABS: CHLORIDE 104 mEq/L (98-107)
[2020-10-11] VITALS: BP 153/83
[2020-10-11 04:00] VITALS: BP 122/82
[2020-10-11 08:00] VITALS: BP 116/68
[2020-10-11] MEDS: FAMOTIDINE 20MG TABLET PO SCH (09:06)
[2020-10-11] MEDS: DEXAMETHASONE 4MG TABLET PO SCH (09:06)
[2020-10-11] MEDS: DEXTROSE 5% WATER 1,000 ML IV SCH (09:06)
[2020-10-11 20:00] VITALS: BP 108/51
[2020-10-11] MEDS: PANTOPRAZOLE SODIUM 40 MG/VIAL IV SCH (22:18)
[2020-10-12] VITALS: BP 130/59
[2020-10-12 04:00] VITALS: BP 103/67
[2020-10-12 09:00] VITALS: BP 145/83
[2020-10-12] MEDS: DEXAMETHASONE 4MG TABLET PO SCH (09:00)
[2020-10-12] MEDS: PANTOPRAZOLE SODIUM 40 MG/VIAL IV SCH ×2 (09:34→22:37)
[2020-10-12 09:57] LABS: BASOPHILS % 0.7 % (0.0-2.0); EOSINOPHILS % 1.2 % (0.0-5.0); HEMATOCRIT. 39.2 % (42.0-52.0); HEMOGLOBIN. 12.7 g/dL (14.0-18.0); LYMPHOCYTES % 20.8 % (20.0-50.0); MEAN CORPUSCULAR HEMOGLOBIN 27.6 pg (28.0-32.0); MEAN CORPUSCULAR VOLUME 84.8 fL (80.0-94.0); MEAN PLATELET VOLUME 10.8 fl (7.4-10.4); MONOCYTES % 4.6 % (2.0-8.0); NEUTROPHILS % 72.7 % (40.0-76.0); PLATELET 139 x1000/uL (130-400); RED BLOOD CELL COUNT 4.62 mill/uL (4.7-6.1); RED CELL DISTRIBUTION WIDTH 13.5 % (11.6-14.6)
[2020-10-12] MEDS ORDERED: CEFAZOLIN 1000MG PREMIX 50 ML IV NR (10:00)
[2020-10-12 10:02] LABS: CHLORIDE 94 mEq/L (98-107)
[2020-10-12 10:07] LABS: INR 1.1; PARTIAL THROMBOPLASTIN TIME 29.3 sec (23.4-31.0); PROTHROMBIN TIME 11.2 sec (9.6-11.0)
[2020-10-12] MEDS ORDERED: DEXTROSE 50% WATER 50ML SYRINGE IV PRN (10:30)
[2020-10-12] MEDS ORDERED: MIDAZOLAM HCL 5 MG/5 ML VIAL IV PRN (10:32)
[2020-10-12] MEDS ORDERED: FENTANYL CITRATE/PF 50MCG/ML 2ML VIAL ONE (10:35)
[2020-10-12] MEDS ORDERED: MIDAZOLAM HCL 5 MG/5 ML VIAL ONE (10:35)
[2020-10-12 12:00] VITALS: BP 149/65
[2020-10-12] MEDS: INSULIN LISPRO 100 UNITS/ML SUBCUT SCH ×3 (12:50→22:38)
[2020-10-12] MEDS: BLOOD SUGAR DIAGNOSTIC STRIP TEST SCH ×3 (13:01→21:00)
[2020-10-12 16:00] VITALS: BP 165/85
[2020-10-12 20:00] VITALS: BP 136/66
[2020-10-13] VITALS: BP 128/68
[2020-10-13 04:00] VITALS: BP 119/76
[2020-10-13] MEDS: INSULIN LISPRO 100 UNITS/ML SUBCUT SCH ×3 (07:50→21:37)
[2020-10-13] MEDS: BLOOD SUGAR DIAGNOSTIC STRIP TEST SCH ×4 (07:57→21:20)
[2020-10-13] MEDS: PANTOPRAZOLE SODIUM 40 MG/VIAL IV SCH ×2 (09:00→21:19)
[2020-10-13 12:00] VITALS: BP 113/64
[2020-10-13 16:00] VITALS: BP 126/61
[2020-10-13 20:00] VITALS: BP 108/60
[2020-10-14] VITALS: BP 119/65
[2020-10-14 04:00] VITALS: BP 123/75
[2020-10-14] MEDS: BLOOD SUGAR DIAGNOSTIC STRIP TEST SCH ×4 (07:33→21:59)
[2020-10-14 08:00] VITALS: BP 112/51
[2020-10-14] MEDS: PANTOPRAZOLE SODIUM 40 MG/VIAL IV SCH ×2 (08:28→21:59)
[2020-10-14] MEDS: INSULIN LISPRO 100 UNITS/ML SUBCUT SCH ×4 (08:46→21:00)
[2020-10-14 12:00] VITALS: BP 100/58
[2020-10-14 16:00] VITALS: BP 122/66
[2020-10-14 20:00] VITALS: BP 115/57
[2020-10-15] VITALS: BP 124/64
[2020-10-15 04:00] VITALS: BP 114/67
[2020-10-15] MEDS: INSULIN LISPRO 100 UNITS/ML SUBCUT SCH ×4 (07:50→21:37)
[2020-10-15] MEDS: BLOOD SUGAR DIAGNOSTIC STRIP TEST SCH ×4 (07:55→21:26)
[2020-10-15 08:00] VITALS: BP 136/63
[2020-10-15] MEDS: PANTOPRAZOLE SODIUM 40 MG/VIAL IV SCH ×2 (09:18→21:25)
[2020-10-15 12:00] VITALS: BP 122/71
[2020-10-15 16:00] VITALS: BP 137/72
[2020-10-15 20:00] VITALS: BP 125/72
[2020-10-16] VITALS: BP 121/69
[2020-10-16 04:00] VITALS: BP 134/69
[2020-10-16] MEDS: BLOOD SUGAR DIAGNOSTIC STRIP TEST SCH ×4 (07:35→20:19)
[2020-10-16 08:00] VITALS: BP 121/58
[2020-10-16] MEDS: PANTOPRAZOLE SODIUM 40 MG/VIAL IV SCH ×2 (09:17→20:19)
[2020-10-16] MEDS: INSULIN LISPRO 100 UNITS/ML SUBCUT SCH ×4 (09:33→20:36)
[2020-10-16 12:00] VITALS: BP 144/76
[2020-10-16 16:00] VITALS: BP 126/69
[2020-10-16 20:00] VITALS: BP 105/73
[2020-10-17] VITALS: BP 136/66
[2020-10-17 04:00] VITALS: BP 109/70
[2020-10-17] MEDS: BLOOD SUGAR DIAGNOSTIC STRIP TEST SCH ×4 (07:20→21:06)
[2020-10-17] MEDS: INSULIN LISPRO 100 UNITS/ML SUBCUT SCH ×4 (07:50→21:00)
[2020-10-17 08:00] VITALS: BP 131/65
[2020-10-17] MEDS: PANTOPRAZOLE SODIUM 40 MG/VIAL IV SCH ×2 (09:33→20:43)
[2020-10-17 12:00] VITALS: BP 112/56
[2020-10-17] MEDS: ENOXAPARIN 40MG/0.4ML SYR SUBCUT SCH (12:06)
[2020-10-17 16:00] VITALS: BP 129/60
[2020-10-17 20:00] VITALS: BP 135/76
[2020-10-18] VITALS: BP 136/67
[2020-10-18 04:00] VITALS: BP 151/61
[2020-10-18] MEDS: BLOOD SUGAR DIAGNOSTIC STRIP TEST SCH ×4 (06:52→21:05)
[2020-10-18 08:00] VITALS: BP 146/75
[2020-10-18] MEDS: PANTOPRAZOLE SODIUM 40 MG/VIAL IV SCH ×2 (09:00→21:06)
[2020-10-18] MEDS: INSULIN LISPRO 100 UNITS/ML SUBCUT SCH ×4 (09:05→21:00)
[2020-10-18] MEDS: ENOXAPARIN 40MG/0.4ML SYR SUBCUT SCH (11:47)
[2020-10-18 12:00] VITALS: BP 144/79
[2020-10-18 16:00] VITALS: BP 112/67
[2020-10-18 20:00] VITALS: BP 99/56
[2020-10-19] VITALS: BP 148/73
[2020-10-19 04:00] VITALS: BP 137/52
[2020-10-19] MEDS: BLOOD SUGAR DIAGNOSTIC STRIP TEST SCH ×2 (06:48→12:20)
[2020-10-19] MEDS: INSULIN LISPRO 100 UNITS/ML SUBCUT SCH ×2 (06:48→12:50)
[2020-10-19 08:50] VITALS: BP 126/68
[2020-10-19 08:52] VITALS: BP 126/68
[2020-10-19] MEDS: PANTOPRAZOLE SODIUM 40 MG/VIAL IV SCH (09:16)
[2020-10-19] MEDS: ENOXAPARIN 40MG/0.4ML SYR SUBCUT SCH (12:00)
== END 2020-10-19 13:42 | disposition hospice, home (50) | DRG 871 ==
LOC: ER 03:58 → MICUSO 10:39 → 7EST 10-03 08:33 → 6EST 10-11 11:53
PROVIDERS: ADMIT Internal Medicine; ATTEND Internal Medicine
PROC: 05HY33Z Insertion of Infusion Device into Upper Vein, Percutaneous Approach (ICD-10-PCS; 2020-10-05)
PROC: B54MZZA Ultrasonography of Right Upper Extremity Veins, Guidance (ICD-10-PCS; 2020-10-05)
PROC: 0DH63UZ Insertion of Feeding Device into Stomach, Percutaneous Approach (ICD-10-PCS; principal; 2020-10-12)
DX: A41.89 Other specified sepsis (principal); U07.1 COVID-19; J96.01 Acute respiratory failure with hypoxia; J12.82 Pneumonia due to coronavirus disease 2019; E46 Unspecified protein-calorie malnutrition; G93.40 Encephalopathy, unspecified; E87.1 Hypo-osmolality and hyponatremia; E87.0 Hyperosmolality and hypernatremia; Z66 Do not resuscitate; Z51.5 Encounter for palliative care; F03.90 Unspecified dementia, unspecified severity, without behavioral disturbance, psychotic disturbance, mood disturbance, and anxiety; R13.10 Dysphagia, unspecified; E78.5 Hyperlipidemia, unspecified; B97.89 Other viral agents as the cause of diseases classified elsewhere; I10 Essential (primary) hypertension; Z79.899 Other long term (current) drug therapy; Z68.25 Body mass index [BMI] 25.0-25.9, adult
CPT/HCPCS: 36415; 36600; 71045; 76937; 80048; 80053; 81003; 82140; 82375; 82728; 82805; 82962; 83036; 83615; 84145; 85025; 85379; 86140; 87426; 93005; 93880; 99285; A6261; C1725; C1769; C1893; C9113; J0456; J0690; J0696; J1650; J1815; J2250; J2543; J3010; J3370; J3490; J7030; J7060; J7070; J8540; U0003

== ENCOUNTER 2022-08-26 21:40 | Emergency (ER) | payer MEDICARE, OTHER ==
[~2022-08-26] VITALS: Ht 175.3 cm; Wt 100.0 kg
[2022-08-26] MEDS ORDERED: ATROPINE SULFATE 1% OPHTH 2ML SL ONE (23:00)
[2022-08-26] MEDS ORDERED: MORPHINE SULFATE 10MG/5ML ORAL SOLN UDC PO PRN (23:00)
[2022-08-27 06:00] VITALS: BP 114/65
== END 2022-08-27 09:38 | disposition home or self-care (01) ==
LOC: ER 21:47
DX: Z04.89 Encounter for examination and observation for other specified reasons (principal); F03.C0 Unspecified dementia, severe, without behavioral disturbance, psychotic disturbance, mood disturbance, and anxiety; G40.909 Epilepsy, unspecified, not intractable, without status epilepticus; G82.50 Quadriplegia, unspecified; Z87.820 Personal history of traumatic brain injury
CPT/HCPCS: 71045; 99285

== ENCOUNTER 2025-04-17 20:32 | Emergency (ER) | payer OTHER ==
[~2025-04-17] VITALS: Ht 182.9 cm; Wt 90.0 kg
[~2025-04-17 20:32] MED LIST changes: +SIMV-345 PO; -SIMV40TA2 PO
[2025-04-17 20:42] VITALS: TEMP 36.6; O2SAT 95
[2025-04-18] MEDS: DIATR MEGLU/DIATRIZOATE SOLN 30ML PO ONE (01:15)
[2025-04-18 02:48] VITALS: BP 113/69; PULSE 51; RESP 16; O2SAT 100
== END 2025-04-18 05:11 | disposition home or self-care (01) ==
LOC: ER 20:32
DX: K94.23 Gastrostomy malfunction (principal); F03.90 Unspecified dementia, unspecified severity, without behavioral disturbance, psychotic disturbance, mood disturbance, and anxiety; G40.909 Epilepsy, unspecified, not intractable, without status epilepticus; Z79.899 Other long term (current) drug therapy; Z79.82 Long term (current) use of aspirin; Z98.890 Other specified postprocedural states
CPT/HCPCS: 43760; 43762; 74018; 99284